=== PATIENT | female | born 1990 | race Caucasian/White ===

== ENCOUNTER 2022-12-18 09:04 | Emergency (ER) | payer OTHER ==
[~2022-12-18] VITALS: Ht 167.6 cm; Wt 88.0 kg
[~2022-12-18 09:04] MED LIST: PREN-385 PO
[2022-12-18 09:11] VITALS: BP 141/92; PULSE 62; RESP 20; TEMP 98; O2SAT 99
[2022-12-18] MEDS ORDERED: PRED20TA5 PO (10:38)
== END 2022-12-18 11:02 | disposition home or self-care (01) ==
LOC: MED 09:04
DX: R21 Rash and other nonspecific skin eruption (principal); T78.49XA Other allergy, initial encounter; Z79.899 Other long term (current) drug therapy; X58.XXXA Exposure to other specified factors, initial encounter
CPT/HCPCS: 81025; 99283